=== PATIENT | male | born 1990 | race Caucasian/White ===

== ENCOUNTER 2018-09-22 15:33 | Emergency (ER) | payer OTHER ==
[~2018-09-22] VITALS: Ht 175.3 cm; Wt 80.7 kg
[2018-09-22 15:38] VITALS: BP 128/75; PULSE 102; RESP 20; Ht 175.3 cm; Wt 80.7 kg
--- NOTE | 2018-09-22 18:03 | ERD ---
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 Site was copiously irrigated and cleansed. Patient is asymptomatic and has no complaints, no significant past medical history to disclose related to this incident ROS All systems reviewed and are negative except as per history of present illness. Allergies Allergies: Coded Allergies: Penicillins (Verified Allergy, Mild, 09/22/18) PMhx/Soc Medical and Surgical Hx: pt denies Medical Hx, pt denies Surgical Hx Hx Alcohol Use: No Hx Substance Use: No Hx Tobacco Use: No Smoking Status: Never smoker FmHx Family History: No diabetes Physical Exam Vitals Vital Signs Date Temp Pulse Resp B/P (MAP) Pulse Ox O2 O2 Flow FiO2 Time Delivery Rate 09/22/18 98.5 102 20 128/75 98 15:38 (92) Physical Exam Const: No acute distress, afebrile Skin: No petechiae or rashes no obvious puncture wound noted no active bleeding right palm appears clean and dry Ext: No cyanosis, or edema, no gross deformities Neur: Awake and alert x3, gait normal, no focal deficits or facial asymmetry Psych: Normal Mood and Affect Result Diagram: 09/22/18 1603 09/22/18 1603 Results 24 hrs Laboratory Tests Test 09/22/18 16:03 White Blood Count 6.2 10^3/ul Red Blood Count 5.37 10^6/ul Hemoglobin 16.0 g/dl Hematocrit 45.8 % Mean Corpuscular Volume 85.3 fl Mean Corpuscular Hemoglobin 29.8 pg Mean Corpuscular Hemoglobin Concent 34.9 g/dl Red Cell Distribution Width 12.0 % Platelet Count 216 10^3/UL Mean Platelet Volume 10.3 fl Immature Granulocytes % 0.200 % Neutrophils % 73.8 % Lymphocytes % 19.8 % Monocytes % 5.8 % Eosinophils % 0.2 % Basophils % 0.2 % Nucleated Red Blood Cells % 0.0 /100WBC Immature Granulocytes # 0.010 10^3/ul Neutrophils # 4.6 10^3/ul Lymphocytes # 1.2 10^3/ul Monocytes # 0.4 10^3/ul Eosinophils # 0.0 10^3/ul Basophils # 0.0 10^3/ul Nucleated Red Blood Cells # 0.0 10^3/ul Sodium Level 143 mmol/L Potassium Level 4.2 mmol/L Chloride Level 102 mmol/L Carbon Dioxide Level 28 mmol/L Anion Gap 13 Blood Urea Nitrogen 12 mg/dl Creatinine 0.82 mg/dl Est Glomerular Filtrat Rate mL/min > 60 mL/min Glucose Level 96 mg/dl Calcium Level 10.2 mg/dl Total Bilirubin 1.4 mg/dl Direct Bilirubin 0.00 mg/dl Indirect Bilirubin 1.4 mg/dl Aspartate Amino Transf (AST/SGOT) 30 IU/L Alanine Aminotransferase (ALT/SGPT) 33 IU/L Alkaline Phosphatase 48 IU/L Total Protein 7.9 g/dl Albumin 5.1 g/dl Lipase 160 U/L Hepatitis B Surface Antigen NEGATIVE Hepatitis B Surface Antibody POSITIVE Hepatitis B Core Total Antibody NEGATIVE Hepatitis C Antibody NEGATIVE HIV (1&2) Antibody NEGATIVE Procedures/MDM Occupational health department was closed and patient was evaluated by me for workplace needlestick injury while placing IV line. Mr. Dupont's labs were drawn and serology studies were negative. Patient's tetanus immunization is up-to-date No further action recommended, patient to be discharged with recommendations for regularly scheduled follow-up with PMD and follow-up at occupational health department when open. Patient feels much better at this time, and vital signs are normal, symptoms have improved. I did give strict instructions to return to the ED if symptoms continue or worsen, patient will otherwise follow-up with primary care physician. Patient understood instructions and agreed to plan. Disclaimer: Inadvertent spelling and grammatical errors are likely due to EHR/d ictation software use and do not reflect on the overall quality of patient care. Also, please note that the electronic time recorded on this note does not necessarily reflect the actual time of the patient encounter. Departure Diagnosis: Primary Impression: Needlestick injury accident Condition: Good Patient Instructions: Drug Abuse RUPINDER MEDELLIN MD Sep 22, 2018 18:03
== END 2018-09-22 16:10 | disposition home or self-care (01) ==
LOC: E/R 15:33
DX: S61.431A Puncture wound without foreign body of right hand, initial encounter (principal); W46.0XXA Contact with hypodermic needle, initial encounter; Y92.9 Unspecified place or not applicable
CPT/HCPCS: 80048; 80076; 83690; 85025; 86703; 86704; 86706; 86803; 87340; 87536; 99283